=== PATIENT | female | born 1960 | race African-American/Black ===

== ENCOUNTER 2016-04-25 14:34 | Emergency (ER) | payer OTHER ==
[~2016-04-25] VITALS: Ht 157.5 cm; Wt 90.0 kg
[~2016-04-25 14:34] MED LIST: ALAVERT10 MG PO; ALBUTEROL0.63 MG/3 IH; ALDOMET250 MG PO; AMBIEN5 M1 PO; AMLODIPINE BESYL5 MG PO; APRESOLINE50 MG PO; ASPIRIN EC325 MG PO; ASPIRIN325 MG PO; AVENTYL,PAMELOR25 MG PO; BENTYL20 MG PO; CARAFATE1 GM PO; CATAPRES0.2 MG PO; CEFDINIR300 MG PO; CETIRIZINE HCL10 M2 PO; CINNABETIC1 CAPSUL1 PO; CLONIDINE HCL0.2 MG PO; CYMBALTA60 MG PO; DIABETA,MICRONAS5 MG PO; DICYCLOMINE HCL20 MG PO; DULCOLAX10 MG PR; ECOTRIN325 MG PO; EFFEXOR XR75 MG PO; EFFEXOR37.5 MG PO; EFFEXOR75 MG PO; Ecotrin PO; FERROUS SULFAT325 MG PO; FIORICET,ESG1 TABLET PO; FLEET ENEMA-AD118 ML PR; FLOVENT 11120 INHALA IH; FLUOXETINE HCL20 MG PO; GABAPENTIN300 MG PO; GEODON40 MG PO; GEODON60 MG PO; GLUCOPHAGE1000 MG PO; HUMALOG100 UNIT/1 SC; HYDROCHLOROTHIA25 MG PO; IBUPROFEN800 MG PO; KLOR-CON 1010 ME1 PO; LABETALOL HCL200 MG PO; LANTUS (UNITS)1 UNIT IV; LANTUS 10100 UNITS/ SC; LANTUS 3 M100 UNITS1 SC; LEVAQUIN500 MG PO; LEVEMIR FL100 UNIT/1 SC; LEXAPRO10 MG PO; LIPITOR20 MG PO; LIPITOR40 MG PO; LISINOPRIL10 MG PO; LISINOPRIL20 MG PO; LISINOPRIL40 MG PO; LITE COAT ASPI325 M1 PO; LOTENSIN40 MG PO; MACROBID100 MG PO; METFORMIN HCL500 MG PO; METHYLDOPA250 MG PO; MILK OF MAGN PO; MIRALAX17 GM PO; MIRALAX255 GM PO; MOTRIN800 MG PO; MULTI VITAMIN1 EACH PO; MULTIPLE VITAM1 EACH PO; MULTIVITAMIN1 EAC2 PO; NEURONTIN300 MG PO; NITROGLYCERIN0.4 MG PO; NITROSTAT0.4 MG SL; NORMODYNE,TRAN200 MG PO; NORMODYNE200 MG PO; NORTRIPTYLINE H25 MG PO; NORVASC10 MG PO; NORVASC5 MG PO; NOVOLOG 10100 UNITS/ SC; NOVOLOG MI100 UNIT/2 SQ; NOVOLOG MI100 UNIT/3 SQ; NOVOLOG MI100 UNIT/4 SC; NOVOLOG MI100 UNIT/M PO; NOVOLOG MI100 UNIT/M SC; NOVOLOG PE100 UNITS/ SC; ONE DAILY TABL1 EAC1 PO; PHARMACIST FAV1 EACH PO; PLAVIX75 MG PO; POLYETHYLENE GL17 GM PO; PROAIR HFA8.5 GM IH; PROZAC20 MG PO; RANITIDINE HCL300 MG PO; REGLAN10 MG PO; ROZEREM8 MG PO; SENNA S TABLET1 EACH PO; SENNA-TIME S T1 EACH PO; SENNA8.6 M1 PO; SENNA8.6 MG PO; SENOKOT,SENN1 TABLET PO; SIMVASTATIN80 M1 PO; ST JOSEPH ASPIR81 M1 PO; ST JOSEPH ASPIR81 M2 PO; TOPAMAX25 MG PO; TOPAMAX50 MG PO; TOPIRAMATE25 MG PO; TRAMADOL HCL50 MG PO; TYLENOL REGULA325 MG PO; VENLAFAXINE HCL75 M3 PO; XARELTO15 MG PO; XARELTO20 MG PO; XYZAL5 MG PO; Xanax PO; ZANTAC300 MG PO; ZESTRIL20 MG PO; ZESTRIL40 MG PO; ZIPRASIDONE HCL60 MG PO; ZYRTEC10 M1 PO; ZYRTEC10 M2 PO; ZYRTEC10 M3 PO; [UNRECOGNIZED DRUG - OTHER] PO
[2016-04-25 15:01] LABS: HEMATOCRIT 32.3 % (36.0-46.0); MCH 24.3 PG (29.0-34.0); MCV 78.4 FL (83-99); MEAN PLAT.VOLUME 10.8 uM^3 (9.5-12.4); PLATELET COUNT 281 K/uL (156-360); RBC DIS.WIDTH-SD 39.3 % (39-53); RED BLOOD COUNT 4.12 M/uL (3.80-5.20); WHITE BLOOD COUNT 5.5 K/uL (4.1-10.2)
[2016-04-25 15:04] LABS: CARBON DIOXIDE (BICARBONATE) 22.7 MEQ/L (20-31)
[2016-04-25 15:10] LABS: CHLORIDE 109 mEq/L (99-109); POTASSIUM 3.8 mEq/L (3.7-5.4); SODIUM 139 mEq/L (136-147)
[2016-04-25 15:13] LABS: ANION GAP 9 MEQ/L (2-14)
[2016-04-25 15:15] LABS: GFR ESTIMATE (CALCULATED) > 59 mL/min/
[2016-04-25 15:16] LABS: UREA NITROGEN (BUN) 13 mg/dL (9-23)
[2016-04-25 15:20] LABS: GLUCOSE 457 mg/dL (70-99)
[2016-04-25 16:29] LABS: POINT-OF-CARE METER ID UU14100415
[2016-04-25 18:08] VITALS: BP 127/91
[2016-04-28 08:04] LABS: POINT-OF-CARE METER ID UU13113800; POINT-OF-CARE USER ID PUTMLD10
== END 2016-04-25 18:08 | disposition home or self-care (01) ==
LOC: EME → EDBD 14:34 → EME 14:34
PROVIDERS: Physician Assistant
DX: E11.65 Type 2 diabetes mellitus with hyperglycemia (principal); S93.602A Unspecified sprain of left foot, initial encounter; X58.XXXA Exposure to other specified factors, initial encounter; I10 Essential (primary) hypertension; E78.5 Hyperlipidemia, unspecified; Z79.4 Long term (current) use of insulin; Z79.02 Long term (current) use of antithrombotics/antiplatelets; Z79.82 Long term (current) use of aspirin; Z91.14 Patient's other noncompliance with medication regimen; Z87.891 Personal history of nicotine dependence
CPT/HCPCS: 73630; 80048; 82010; 82803; 82948; 85027; 99281; 99284; J7030

== ENCOUNTER 2016-05-30 17:26 | Emergency (ER) | payer OTHER ==
[~2016-05-30] VITALS: Ht 154.9 cm; Wt 89.1 kg
[2016-05-30 18:26] LABS: HEMATOCRIT 33.9 % (36.0-46.0); MCH 24.1 PG (29.0-34.0); MCHC 31.3 G/DL (30.0-36.0); MCV 77.2 FL (83-99); MEAN PLAT.VOLUME 11.7 uM^3 (9.5-12.4); PLATELET COUNT 310 K/uL (156-360); RBC DIS.WIDTH-CV 13.8 % (11.8-14.6); RBC DIS.WIDTH-SD 38.5 % (39-53); RED BLOOD COUNT 4.39 M/uL (3.80-5.20); WHITE BLOOD COUNT 6.4 K/uL (4.1-10.2)
[2016-05-30 18:38] LABS: CHLORIDE 107 mEq/L (99-109); SODIUM 135 mEq/L (136-147)
[2016-05-30 18:41] LABS: ANION GAP 9 MEQ/L (2-14)
[2016-05-30 18:43] LABS: GFR ESTIMATE (CALCULATED) 55 mL/min/
[2016-05-30 18:44] LABS: UREA NITROGEN (BUN) 15 mg/dL (9-23)
[2016-05-30 18:47] LABS: GLUCOSE 592 mg/dL (70-99)
[2016-05-30 18:50] LABS: TROP-I INTERPRETATION NEGATIVE; TROPONIN-I < 0.01 ng/mL (0.0-0.30)
[2016-05-30 20:47] LABS: ADD MIUA? NO; BILIRUBIN NEGATIVE; BLOOD NEGATIVE; COLOR YELLOW ((YELLOW)); GLUCOSE (STRIP) >=500; KETONES NEGATIVE; LEUKOCYTES NEGATIVE; NITRITE NEGATIVE; PROTEIN (STRIP) 30; SPECIFIC GRAVITY 1.035 (1.000-1.030); UCUL ADDED? NO; UROBILINOGEN 0.2 MG/DL (0.2-1.0)
[2016-05-30 21:14] LABS: POINT-OF-CARE METER ID UU13113702
[2016-05-30 21:57] LABS: POINT-OF-CARE METER ID UU13113702; POINT-OF-CARE USER ID 608261302
[2016-05-30 22:10] VITALS: BP 166/90
== END 2016-05-30 22:22 | disposition home or self-care (01) ==
LOC: EME 17:26
PROVIDERS: Emergency Medicine; Nurse Practitioner Family
DX: E10.65 Type 1 diabetes mellitus with hyperglycemia (principal); R51 Headache; M79.602 Pain in left arm; M79.605 Pain in left leg; I10 Essential (primary) hypertension; E78.5 Hyperlipidemia, unspecified; Z86.73 Personal history of transient ischemic attack (TIA), and cerebral infarction without residual deficits; Z79.4 Long term (current) use of insulin; Z79.02 Long term (current) use of antithrombotics/antiplatelets; Z79.82 Long term (current) use of aspirin; Z87.891 Personal history of nicotine dependence
CPT/HCPCS: 70450; 71020; 80048; 81003; 82948; 84484; 85027; 93005; 99281; 99285; J1815; J1885; J7030

== ENCOUNTER 2016-10-14 12:43 | Emergency (ER) | payer OTHER ==
[~2016-10-14] VITALS: Ht 154.9 cm; Wt 92.9 kg
[2016-10-14 14:34] LABS: HEMATOCRIT 36.6 % (36.0-46.0); MCH 23.3 PG (29.0-34.0); MCHC 30.9 G/DL (30.0-36.0); MCV 75.6 FL (83-99); MEAN PLAT.VOLUME 10.9 uM^3 (9.5-12.4); PLATELET COUNT 333 K/uL (156-360); RBC DIS.WIDTH-CV 14.5 % (11.8-14.6); RBC DIS.WIDTH-SD 39.4 % (39-53); RED BLOOD COUNT 4.84 M/uL (3.80-5.20); WHITE BLOOD COUNT 6.5 K/uL (4.1-10.2)
[2016-10-14 14:43] LABS: CHLORIDE 108 mEq/L (99-109); POTASSIUM 3.9 mEq/L (3.7-5.4); SODIUM 141 mEq/L (136-147)
[2016-10-14 14:45] LABS: GLUCOSE 185 mg/dL (70-99)
[2016-10-14 14:47] LABS: ANION GAP 9 MEQ/L (2-14); TOTAL BILIRUBIN 0.6 mg/dL (0.0-1.0)
[2016-10-14 14:49] LABS: ALKALINE PHOSPHATASE 108 IU/L (3-129); GFR ESTIMATE (CALCULATED) > 59 mL/min/
[2016-10-14 14:50] LABS: UREA NITROGEN (BUN) 17 mg/dL (9-23)
[2016-10-14] MEDS ORDERED: MOTRIN800 MG PO (15:09)
[2016-10-14 16:23] VITALS: BP 178/86
== END 2016-10-14 16:23 | disposition home or self-care (01) ==
LOC: EME 12:43
PROVIDERS: Nurse Practitioner Family
DX: R51 Headache (principal); I10 Essential (primary) hypertension; R11.2 Nausea with vomiting, unspecified; E10.9 Type 1 diabetes mellitus without complications; Z79.4 Long term (current) use of insulin; E78.5 Hyperlipidemia, unspecified; F10.10 Alcohol abuse, uncomplicated; R62.50 Unspecified lack of expected normal physiological development in childhood; Z86.73 Personal history of transient ischemic attack (TIA), and cerebral infarction without residual deficits; Z87.891 Personal history of nicotine dependence
CPT/HCPCS: 80053; 85027; 99281; 99285; J1885; J2405; J3010

== ENCOUNTER 2017-01-26 19:18 | Emergency (ER) | payer OTHER ==
[~2017-01-26] VITALS: Ht 157.5 cm; Wt 94.7 kg
[2017-01-26 19:35] LABS: POINT-OF-CARE METER ID UU13113747
[2017-01-26 19:57] LABS: HEMATOCRIT 36.2 % (36.0-46.0); MCHC 30.9 G/DL (30.0-36.0); MCV 77.7 FL (83-99); MEAN PLAT.VOLUME 10.4 uM^3 (9.5-12.4); PLATELET COUNT 350 K/uL (156-360); RBC DIS.WIDTH-CV 14.4 % (11.8-14.6); RBC DIS.WIDTH-SD 40.3 % (39-53); RED BLOOD COUNT 4.66 M/uL (3.80-5.20); WHITE BLOOD COUNT 8.5 K/uL (4.1-10.2)
[2017-01-26 20:04] LABS: CHLORIDE 109 mEq/L (99-109); POTASSIUM 4.1 mEq/L (3.7-5.4); SODIUM 142 mEq/L (136-147)
[2017-01-26 20:06] LABS: GLUCOSE 127 mg/dL (70-99)
[2017-01-26 20:07] LABS: ANION GAP 8 MEQ/L (2-14)
[2017-01-26 20:08] LABS: TOTAL BILIRUBIN 0.4 mg/dL (0.0-1.0)
[2017-01-26 20:10] LABS: ALKALINE PHOSPHATASE 109 IU/L (3-129); GFR ESTIMATE (CALCULATED) > 59 mL/min/
[2017-01-26 20:11] LABS: UREA NITROGEN (BUN) 17 mg/dL (9-23)
[2017-01-26 22:21] LABS: ADD MIUA? YES; BILIRUBIN NEGATIVE; BLOOD NEGATIVE; COLOR YELLOW ((YELLOW)); GLUCOSE (STRIP) NEGATIVE; KETONES NEGATIVE; LEUKOCYTES MODERATE; NITRITE NEGATIVE; PROTEIN (STRIP) 30; SPECIFIC GRAVITY 1.023 (1.000-1.030)
[2017-01-26 22:31] LABS: POINT-OF-CARE METER ID UU13113747; POINT-OF-CARE USER ID 611181311
[2017-01-26 22:47] LABS: BACTERIA RARE /HPF; EPITHELIAL CELLS 1+ /HPF; MUCUS TRACE /LPF; UCUL ADDED? YES; WHITE BLOOD CELLS 20-30 /HPF (0-5)
[2017-01-26 23:15] VITALS: BP 115/95
== END 2017-01-26 23:15 | disposition home or self-care (01) ==
LOC: EME 19:18
PROVIDERS: Nurse Practitioner Family
DX: E10.649 Type 1 diabetes mellitus with hypoglycemia without coma (principal); Z79.4 Long term (current) use of insulin; E78.5 Hyperlipidemia, unspecified; I10 Essential (primary) hypertension; R62.50 Unspecified lack of expected normal physiological development in childhood; Z86.73 Personal history of transient ischemic attack (TIA), and cerebral infarction without residual deficits; Z87.891 Personal history of nicotine dependence; Z88.2 Allergy status to sulfonamides; Z88.6 Allergy status to analgesic agent
CPT/HCPCS: 71020; 80053; 81003; 82948; 85027; 87086; 93005; 99281; 99285

== ENCOUNTER 2017-05-04 11:18 | Emergency (ER) | payer OTHER ==
[~2017-05-04] VITALS: Ht 157.5 cm; Wt 93.0 kg
[2017-05-04 13:23] LABS: BASOPHIL (%) 0.5 % (0-1); EOSINOPHIL (%) 1.8 % (0-5); EOSINOPHIL COUNT 0.1 K/uL (0-0.3); HEMATOCRIT 37.5 % (36.0-46.0); HEMOGLOBIN 11.8 G/DL (11.9-15.5); IMMATURE GRANULOCYTE (%) 0.3 % (0.0-0.7); LYMPHOCYTE (%) 34.7 % (15-42); LYMPHOCYTE COUNT 2.2 K/uL (1.0-2.8); MCH 24.3 PG (29.0-34.0); MCHC 31.5 G/DL (30.0-36.0); MCV 77.2 FL (83-99); MONOCYTE COUNT 0.6 K/uL (0-0.8); NEUTROPHIL (%) 53.7 % (45-76); NEUTROPHIL COUNT 3.3 K/uL (1.8-6.4); PLATELET COUNT 252 K/uL (156-360); RBC DIS.WIDTH-CV 14.6 % (11.8-14.6); RBC DIS.WIDTH-SD 40.3 % (39-53); RED BLOOD COUNT 4.86 M/uL (3.80-5.20); WHITE BLOOD COUNT 6.2 K/uL (4.1-10.2)
[2017-05-04 13:31] LABS: CHLORIDE 109 mEq/L (99-109); POTASSIUM 4.9 mEq/L (3.7-5.4); SODIUM 140 mEq/L (136-147)
[2017-05-04 13:32] LABS: GLUCOSE 230 mg/dL (70-99)
[2017-05-04 13:36] LABS: CREATININE 0.9 mg/dL (0.6-1.3); GFR ESTIMATE (CALCULATED) > 59 mL/min/
[2017-05-04 13:37] LABS: UREA NITROGEN (BUN) 14 mg/dL (9-23)
[2017-05-04] MEDS ORDERED: PEN-VEE K,VEET500 MG PO (15:16)
[2017-05-04 15:37] VITALS: BP 178/92
== END 2017-05-04 15:59 | disposition home or self-care (01) ==
LOC: EME 11:18
PROVIDERS: Emergency Medicine
DX: K04.7 Periapical abscess without sinus (principal); K05.10 Chronic gingivitis, plaque induced; R13.10 Dysphagia, unspecified; E10.9 Type 1 diabetes mellitus without complications; Z79.4 Long term (current) use of insulin; E78.5 Hyperlipidemia, unspecified; I10 Essential (primary) hypertension; Z86.73 Personal history of transient ischemic attack (TIA), and cerebral infarction without residual deficits; Z88.2 Allergy status to sulfonamides; Z87.891 Personal history of nicotine dependence; Z88.6 Allergy status to analgesic agent
CPT/HCPCS: 70491; 80048; 82948; 85025; 99281; 99285; J7030

== ENCOUNTER 2017-05-25 12:11 | Inpatient (IN) | payer OTHER ==
[~2017-05-25] VITALS: Ht 157.5 cm; Wt 95.0 kg
[~2017-05-25 12:11] MED LIST changes: +PEN-VEE K,VEET500 MG PO; -ZYRTEC10 M2 PO
[2017-05-25 13:06] LABS: BASOPHIL (%) 0.3 % (0-1); EOSINOPHIL (%) 2.4 % (0-5); EOSINOPHIL COUNT 0.1 K/uL (0-0.3); HEMATOCRIT 34.6 % (36.0-46.0); HEMOGLOBIN 10.9 G/DL (11.9-15.5); IMMATURE GRANULOCYTE (%) 0.5 % (0.0-0.7); LYMPHOCYTE (%) 32.5 % (15-42); LYMPHOCYTE COUNT 1.9 K/uL (1.0-2.8); MCH 24.1 PG (29.0-34.0); MCHC 31.5 G/DL (30.0-36.0); MCV 76.5 FL (83-99); MONOCYTE (%) 10.4 % (3-12); MONOCYTE COUNT 0.6 K/uL (0-0.8); NEUTROPHIL (%) 53.9 % (45-76); NEUTROPHIL COUNT 3.2 K/uL (1.8-6.4); PLATELET COUNT 283 K/uL (156-360); RBC DIS.WIDTH-CV 14.5 % (11.8-14.6); RBC DIS.WIDTH-SD 39.6 % (39-53); RED BLOOD COUNT 4.52 M/uL (3.80-5.20); WHITE BLOOD COUNT 5.9 K/uL (4.1-10.2)
[2017-05-25 13:15] LABS: PTT 26.3 SEC (25-37)
[2017-05-25 13:18] LABS: CHLORIDE 104 mEq/L (99-109); POTASSIUM 4.2 mEq/L (3.7-5.4); SODIUM 137 mEq/L (136-147)
[2017-05-25 13:20] LABS: GLUCOSE 548 mg/dL (70-99)
[2017-05-25 13:23] LABS: CREATININE 1.1 mg/dL (0.6-1.3); GFR ESTIMATE (CALCULATED) > 59 mL/min/
[2017-05-25 13:24] LABS: UREA NITROGEN (BUN) 17 mg/dL (9-23)
[2017-05-25 13:32] LABS: TROP-I INTERPRETATION NEGATIVE; TROPONIN-I < 0.01 ng/mL (0.0-0.30)
[2017-05-25 19:49] LABS: HDL CHOLESTEROL 47 MG/DL (Desirable>=50); LDL CHOLESTEROL 116 mg/dL (Desirable<100); NON-HDL CHOLESTEROL 132 mg/dL (Desirable<160); TOTAL CHOLESTEROL 179 mg/dL (Desirable<200); TRIGLYCERIDES 79 MG/DL (Normal: <150)
[2017-05-25 20:21] VITALS: BP 178/74
[2017-05-25 23:31] VITALS: BP 180/84
[2017-05-26] VITALS (8 sets, daily range): BP systolic 121–177; BP diastolic 61–86
[2017-05-26 13:35] LABS: HEMOGLOBIN A1c (GLYCOHEMOGLOB) 11.8 % (Below 5.7)
[2017-05-27] VITALS (7 sets, daily range): BP systolic 130–167; BP diastolic 59–79
[2017-05-27 12:26] LABS: CHLORIDE 107 MEQ/L (99-109); CREATININE 1.1 MG/DL (0.6-1.3); GFR ESTIMATE (CALCULATED) > 59 mL/min/; GLUCOSE 355 mg/dL (70-99); SODIUM 134 MEQ/L (136-147); UREA NITROGEN (BUN) 16 mg/dL (9-23)
[2017-05-28 04:25] VITALS: BP 136/65
[2017-05-28 08:00] VITALS: BP 136/67
[2017-05-28 11:34] VITALS: BP 138/65
[2017-05-28 15:50] VITALS: BP 122/55
[2017-05-28 19:58] VITALS: BP 143/67
[2017-05-29] VITALS: BP 116/70
[2017-05-29 04:48] VITALS: BP 139/79
[2017-05-29 06:42] LABS: HEMOGLOBIN 10.5 G/DL (11.9-15.5); MCH 23.8 PG (29.0-34.0); MCHC 30.9 G/DL (30.0-36.0); MCV 77.1 FL (83-99); PLATELET COUNT 290 K/uL (156-360); RBC DIS.WIDTH-CV 14.7 % (11.8-14.6); RBC DIS.WIDTH-SD 41.1 % (39-53); RED BLOOD COUNT 4.41 M/uL (3.80-5.20); WHITE BLOOD COUNT 6.2 K/uL (4.1-10.2)
[2017-05-29 07:03] LABS: CHLORIDE 111 MEQ/L (99-109); CREATININE 0.9 MG/DL (0.6-1.3); GFR ESTIMATE (CALCULATED) > 59 mL/min/; SODIUM 140 MEQ/L (136-147); UREA NITROGEN (BUN) 17 mg/dL (9-23)
[2017-05-29 07:04] LABS: GLUCOSE 91 mg/dL (70-99)
[2017-05-29 08:19] VITALS: BP 144/67
[2017-05-29] MEDS ORDERED: NOVOLOG MI100 UNIT/3 SC (11:15)
[2017-05-29] MEDS ORDERED: INSULIN SYRING1 EA53 MC (11:16)
[2017-05-29] MEDS ORDERED: TEST STRIPS MC (11:16)
[2017-05-29] MEDS ORDERED: 1ST TIER UNILE1 EAC1 MC (11:16)
[2017-05-29 16:44] VITALS: BP 127/61
== END 2017-05-29 17:17 | disposition home health service (06) | DRG 65 ==
LOC: EME 12:11 → EDOF 18:09 → ENRESERV 18:16 → 5WEST 20:04 → 5SOUTH 05-26 10:51 → ENRESERV 05-26 10:57 → 5SOUTH 05-26 14:02 → ENPENDDIS 05-29 11:20 → 5SOUTH 05-29 17:17
PROVIDERS: Emergency Medicine; Hospitalist; Internal Medicine; Physician Assistant Medical
DX: I63.9 Cerebral infarction, unspecified (principal); I16.0 Hypertensive urgency; I67.2 Cerebral atherosclerosis; E11.65 Type 2 diabetes mellitus with hyperglycemia; I69.354 Hemiplegia and hemiparesis following cerebral infarction affecting left non-dominant side; I10 Essential (primary) hypertension; E78.5 Hyperlipidemia, unspecified; R13.10 Dysphagia, unspecified; D64.9 Anemia, unspecified; R29.810 Facial weakness; F32.9 Major depressive disorder, single episode, unspecified; E66.9 Obesity, unspecified; Z68.38 Body mass index [BMI] 38.0-38.9, adult; K21.9 Gastro-esophageal reflux disease without esophagitis; Z90.710 Acquired absence of both cervix and uterus; Z91.19 Patient's noncompliance with other medical treatment and regimen; Z82.49 Family history of ischemic heart disease and other diseases of the circulatory system; Z82.3 Family history of stroke; Z79.899 Other long term (current) drug therapy; Z79.82 Long term (current) use of aspirin; Z79.4 Long term (current) use of insulin
CPT/HCPCS: 70450; 70496; 70498; 70551; 71045; 80048; 80061; 82948; 83036; 84484; 85025; 85027; 85610; 85730; 93005; 93306; 93880; 99281; 99285; G0378; J0360; J1644; J1815; J2060; J7030

== ENCOUNTER 2017-06-13 18:52 | Emergency (ER) | payer OTHER ==
[~2017-06-13] VITALS: Ht 157.5 cm; Wt 92.1 kg
[~2017-06-13 18:52] MED LIST changes: +1ST TIER UNILE1 EAC1 MC; +INSULIN SYRING1 EA53 MC; +NOVOLOG MI100 UNIT/3 SC; +TEST STRIPS MC
[2017-06-13 20:03] LABS: HEMATOCRIT 36.9 % (36.0-46.0); HEMOGLOBIN 11.6 G/DL (11.9-15.5); MCHC 31.4 G/DL (30.0-36.0); MCV 76.4 FL (83-99); PLATELET COUNT 277 K/uL (156-360); RBC DIS.WIDTH-CV 14.6 % (11.8-14.6); RBC DIS.WIDTH-SD 39.8 % (39-53); RED BLOOD COUNT 4.83 M/uL (3.80-5.20); WHITE BLOOD COUNT 9.2 K/uL (4.1-10.2)
[2017-06-13 20:11] LABS: CHLORIDE 107 mEq/L (99-109); POTASSIUM 3.8 mEq/L (3.7-5.4); SODIUM 139 mEq/L (136-147)
[2017-06-13 20:13] LABS: GLUCOSE 65 mg/dL (70-99); TOTAL PROTEIN 7.9 g/dL (6.4-8.3)
[2017-06-13 20:15] LABS: TOTAL BILIRUBIN 0.5 mg/dL (0.0-1.0)
[2017-06-13 20:17] LABS: ALKALINE PHOSPHATASE 111 IU/L (3-129); CREATININE 0.9 mg/dL (0.6-1.3); GFR ESTIMATE (CALCULATED) > 59 mL/min/
[2017-06-13 20:18] LABS: UREA NITROGEN (BUN) 26 mg/dL (9-23)
[2017-06-13 20:19] LABS: AST (GOT) 21 IU/L (2-34)
[2017-06-13 20:20] LABS: ALT (GPT) 25 IU/L (3-49)
[2017-06-13 21:55] LABS: APPEARANCE CLEAR ((CLEAR)); BILIRUBIN NEGATIVE; BLOOD SMALL; COLOR YELLOW ((YELLOW)); GLUCOSE (STRIP) NEGATIVE; KETONES NEGATIVE; LEUKOCYTES NEGATIVE; NITRITE NEGATIVE; PROTEIN (STRIP) 100; SPECIFIC GRAVITY 1.016 (1.000-1.030); UROBILINOGEN 0.2 MG/DL (0.2-1.0)
[2017-06-13 21:59] LABS: BACTERIA NONE SEEN /HPF; EPITHELIAL CELLS RARE /HPF; HYALINE CASTS 0-5 /LPF; MUCUS TRACE /LPF; RED BLOOD CELLS 0-5 /HPF (0-5); UCUL ADDED? NO; WHITE BLOOD CELLS 0-5 /HPF (0-5)
[2017-06-13 23:16] VITALS: BP 96/77
== END 2017-06-13 23:28 | disposition home or self-care (01) ==
LOC: EME 18:52
PROVIDERS: Emergency Medicine
DX: E10.65 Type 1 diabetes mellitus with hyperglycemia (principal); Z79.4 Long term (current) use of insulin; R94.31 Abnormal electrocardiogram [ECG] [EKG]; I10 Essential (primary) hypertension; E78.5 Hyperlipidemia, unspecified; J45.909 Unspecified asthma, uncomplicated; F32.9 Major depressive disorder, single episode, unspecified; Z87.891 Personal history of nicotine dependence; Z79.82 Long term (current) use of aspirin; Z86.73 Personal history of transient ischemic attack (TIA), and cerebral infarction without residual deficits; Z90.49 Acquired absence of other specified parts of digestive tract; Z88.2 Allergy status to sulfonamides; Z88.5 Allergy status to narcotic agent; Z88.6 Allergy status to analgesic agent
CPT/HCPCS: 71045; 80053; 81003; 82948; 85027; 93005; 99281; 99285

== ENCOUNTER 2017-06-25 17:28 | Emergency (ER) | payer OTHER ==
[~2017-06-25] VITALS: Ht 157.5 cm; Wt 90.4 kg
[2017-06-25 18:00] LABS: HEMATOCRIT 37.2 % (36.0-46.0); HEMOGLOBIN 11.8 G/DL (11.9-15.5); MCH 24.4 PG (29.0-34.0); MCHC 31.7 G/DL (30.0-36.0); PLATELET COUNT 320 K/uL (156-360); RBC DIS.WIDTH-CV 14.7 % (11.8-14.6); RBC DIS.WIDTH-SD 40.6 % (39-53); RED BLOOD COUNT 4.83 M/uL (3.80-5.20); WHITE BLOOD COUNT 7.2 K/uL (4.1-10.2)
[2017-06-25 18:09] LABS: ALBUMIN 4.2 g/dL (3.2-4.8)
[2017-06-25 18:10] LABS: CHLORIDE 108 mEq/L (99-109); SODIUM 143 mEq/L (136-147)
[2017-06-25 18:12] LABS: GLUCOSE 342 mg/dL (70-99); TOTAL PROTEIN 8.2 g/dL (6.4-8.3)
[2017-06-25 18:14] LABS: TOTAL BILIRUBIN 0.6 mg/dL (0.0-1.0)
[2017-06-25 18:15] LABS: ALKALINE PHOSPHATASE 136 IU/L (3-129)
[2017-06-25 18:16] LABS: CREATININE 1.2 mg/dL (0.6-1.3); GFR ESTIMATE (CALCULATED) > 59 mL/min/
[2017-06-25 18:17] LABS: AST (GOT) 14 IU/L (2-34); UREA NITROGEN (BUN) 17 mg/dL (9-23)
[2017-06-25 18:19] LABS: ALT (GPT) 25 IU/L (3-49)
[2017-06-25 21:08] LABS: APPEARANCE SL.HAZY ((CLEAR)); BILIRUBIN NEGATIVE; BLOOD NEGATIVE; COLOR YELLOW ((YELLOW)); GLUCOSE (STRIP) >=500; KETONES NEGATIVE; LEUKOCYTES NEGATIVE; NITRITE NEGATIVE; PROTEIN (STRIP) 30; SPECIFIC GRAVITY 1.035 (1.000-1.030); UROBILINOGEN 0.2 MG/DL (0.2-1.0)
[2017-06-25 21:20] LABS: BACTERIA NONE SEEN /HPF; EPITHELIAL CELLS 1+ /HPF; HYALINE CASTS 0-5 /LPF; MUCUS TRACE /LPF; RED BLOOD CELLS 0-5 /HPF (0-5); UCUL ADDED? NO; WHITE BLOOD CELLS 0-5 /HPF (0-5)
[2017-06-25 23:22] VITALS: BP 129/89
== END 2017-06-25 23:24 | disposition home or self-care (01) ==
LOC: EME 17:28
DX: E10.65 Type 1 diabetes mellitus with hyperglycemia (principal); Z79.4 Long term (current) use of insulin; E78.5 Hyperlipidemia, unspecified; J45.909 Unspecified asthma, uncomplicated; I10 Essential (primary) hypertension; F32.9 Major depressive disorder, single episode, unspecified; R62.50 Unspecified lack of expected normal physiological development in childhood; Z86.73 Personal history of transient ischemic attack (TIA), and cerebral infarction without residual deficits; Z88.2 Allergy status to sulfonamides; Z87.891 Personal history of nicotine dependence; Z88.6 Allergy status to analgesic agent
CPT/HCPCS: 80053; 81003; 82948; 85027; J7030

== ENCOUNTER 2017-07-09 16:03 | Emergency (ER) | payer OTHER ==
[~2017-07-09] VITALS: Ht 157.5 cm; Wt 92.5 kg
[2017-07-09 16:59] LABS: HEMATOCRIT 33.1 % (36.0-46.0); HEMOGLOBIN 10.5 G/DL (11.9-15.5); MCH 24.5 PG (29.0-34.0); MCHC 31.7 G/DL (30.0-36.0); MCV 77.2 FL (83-99); PLATELET COUNT 284 K/uL (156-360); RBC DIS.WIDTH-CV 14.7 % (11.8-14.6); RBC DIS.WIDTH-SD 40.4 % (39-53); RED BLOOD COUNT 4.29 M/uL (3.80-5.20); WHITE BLOOD COUNT 5.8 K/uL (4.1-10.2)
[2017-07-09 17:07] LABS: CHLORIDE 101 mEq/L (99-109); POTASSIUM 3.9 mEq/L (3.7-5.4); SODIUM 134 mEq/L (136-147)
[2017-07-09 17:13] LABS: CREATININE 1.2 mg/dL (0.6-1.3); GFR ESTIMATE (CALCULATED) > 59 mL/min/; UREA NITROGEN (BUN) 23 mg/dL (9-23)
[2017-07-09 17:15] LABS: GLUCOSE 484 mg/dL (70-99)
[2017-07-09] MEDS ORDERED: NOVOLOG 10100 UNITS/ SC (17:22)
[2017-07-09] MEDS ORDERED: NOVOLOG MI100 UNIT/3 SC (17:24)
[2017-07-09 20:15] VITALS: BP 175/89
== END 2017-07-09 20:25 | disposition home or self-care (01) ==
LOC: EME 16:03
PROVIDERS: Nurse Practitioner Family
DX: E10.65 Type 1 diabetes mellitus with hyperglycemia (principal); Z76.0 Encounter for issue of repeat prescription; Z79.4 Long term (current) use of insulin; E78.5 Hyperlipidemia, unspecified; J45.909 Unspecified asthma, uncomplicated; I10 Essential (primary) hypertension; F32.9 Major depressive disorder, single episode, unspecified; R62.50 Unspecified lack of expected normal physiological development in childhood; Z86.73 Personal history of transient ischemic attack (TIA), and cerebral infarction without residual deficits; Z87.891 Personal history of nicotine dependence; Z88.2 Allergy status to sulfonamides; Z88.6 Allergy status to analgesic agent
CPT/HCPCS: 80048; 82010; 82803; 82948; 85027; 99281; 99285; J7030

== ENCOUNTER 2017-08-23 10:46 | Inpatient (IN) | payer OTHER ==
[~2017-08-23] VITALS: Ht 157.5 cm; Wt 93.7 kg
[2017-08-23 11:21] LABS: BASOPHIL (%) 0.2 % (0-1); EOSINOPHIL (%) 0.7 % (0-5); EOSINOPHIL COUNT 0.1 K/uL (0-0.3); HEMATOCRIT 34.5 % (36.0-46.0); HEMOGLOBIN 10.8 G/DL (11.9-15.5); IMMATURE GRANULOCYTE (%) 0.3 % (0.0-0.7); LYMPHOCYTE (%) 19.7 % (15-42); LYMPHOCYTE COUNT 1.9 K/uL (1.0-2.8); MCH 24.5 PG (29.0-34.0); MCHC 31.3 G/DL (30.0-36.0); MCV 78.4 FL (83-99); MONOCYTE (%) 7.7 % (3-12); MONOCYTE COUNT 0.7 K/uL (0-0.8); NEUTROPHIL (%) 71.4 % (45-76); NEUTROPHIL COUNT 6.7 K/uL (1.8-6.4); PLATELET COUNT 268 K/uL (156-360); RBC DIS.WIDTH-CV 14.9 % (11.8-14.6); RBC DIS.WIDTH-SD 42.6 % (39-53); WHITE BLOOD COUNT 9.4 K/uL (4.1-10.2)
[2017-08-23 11:27] LABS: INTER. NORMALIZED RATIO 1.1
[2017-08-23 11:29] LABS: PTT 27.6 SEC (25-37)
[2017-08-23 11:31] LABS: AMYLASE 39 IU/L (1-118); CHLORIDE 108 mEq/L (99-109); SODIUM 139 mEq/L (136-147)
[2017-08-23 11:33] LABS: GLUCOSE 220 mg/dL (70-99)
[2017-08-23 11:36] LABS: SERUM ETHYL ALCOHOL < 10 mg/dL
[2017-08-23 11:37] LABS: CREATININE 1.4 mg/dL (0.6-1.3); GFR ESTIMATE (CALCULATED) 50 mL/min/
[2017-08-23 11:38] LABS: UREA NITROGEN (BUN) 27 mg/dL (9-23)
[2017-08-23 11:40] LABS: LIPASE 15 U/L (1.0-51.0)
[2017-08-23 11:44] LABS: TROP-I INTERPRETATION NEGATIVE; TROPONIN-I < 0.01 ng/mL (0.0-0.30)
[2017-08-23 15:19] LABS: HDL CHOLESTEROL 36 MG/DL (Desirable>=50); LDL CHOLESTEROL 89 mg/dL (Desirable<100); NON-HDL CHOLESTEROL 109 mg/dL (Desirable<160); TOTAL CHOLESTEROL 145 mg/dL (Desirable<200); TRIGLYCERIDES 98 MG/DL (Normal: <150)
[2017-08-23 15:33] VITALS: BP 141/76
[2017-08-23] MEDS ORDERED: LISINOPRIL40 MG PO (16:50)
[2017-08-23] MEDS ORDERED: NOVOLOG MI100 UNIT/3 SC ×2 (16:50)
[2017-08-23] MEDS ORDERED: PANTOPRAZOLE SO40 MG PO (16:50)
[2017-08-23] MEDS ORDERED: FLONASE16 G1 BOTH NARES (16:51)
[2017-08-23] MEDS ORDERED: AZELASTINE137 MCG/0. BOTH NARES (16:51)
[2017-08-23] MEDS ORDERED: CELECOXIB200 MG PO (16:52)
[2017-08-23 19:30] VITALS: BP 153/73
[2017-08-24] VITALS (7 sets, daily range): BP systolic 116–176; BP diastolic 57–94
[2017-08-24 06:32] LABS: HEMATOCRIT 31.5 % (36.0-46.0); HEMOGLOBIN 9.5 G/DL (11.9-15.5); MCH 23.6 PG (29.0-34.0); MCHC 30.2 G/DL (30.0-36.0); MCV 78.4 FL (83-99); PLATELET COUNT 237 K/uL (156-360); RBC DIS.WIDTH-CV 14.9 % (11.8-14.6); RBC DIS.WIDTH-SD 42.6 % (39-53); RED BLOOD COUNT 4.02 M/uL (3.80-5.20); WHITE BLOOD COUNT 6.2 K/uL (4.1-10.2)
[2017-08-24 06:55] LABS: CHLORIDE 111 MEQ/L (99-109); GFR ESTIMATE (CALCULATED) > 59 mL/min/; GLUCOSE 129 mg/dL (70-99); POTASSIUM 4.2 MEQ/L (3.7-5.4); SODIUM 143 MEQ/L (136-147); UREA NITROGEN (BUN) 17 mg/dL (9-23)
[2017-08-24 06:56] LABS: CREATININE 0.9 MG/DL (0.6-1.3)
[2017-08-24 09:25] LABS: HEMOGLOBIN A1c (GLYCOHEMOGLOB) 10.8 % (Below 5.7)
[2017-08-25] VITALS: BP 156/94
[2017-08-25 03:36] VITALS: BP 118/74
[2017-08-25 08:02] VITALS: BP 142/75
[2017-08-25] MEDS ORDERED: INSULIN SYRING1 EA53 MC (08:28)
[2017-08-25] MEDS ORDERED: TEST STRIPS MC (08:30)
[2017-08-25] MEDS ORDERED: 1ST TIER UNILE1 EAC1 MC (08:30)
[2017-08-25] MEDS ORDERED: LIDODERM 5% P1 PATCH TD (08:36)
[2017-08-25] MEDS ORDERED: GLIPIZIDE5 MG PO (10:14)
[2017-08-25 11:28] VITALS: BP 147/78
== END 2017-08-25 13:12 | disposition home health service (06) | DRG 65 ==
LOC: EME 10:46 → EDOF 12:41 → 5SOUTH 12:41 → ENRESERV 12:47 → 5SOUTH 14:58
PROVIDERS: Emergency Medicine; Internal Medicine
DX: I63.9 Cerebral infarction, unspecified (principal); E11.65 Type 2 diabetes mellitus with hyperglycemia; R47.81 Slurred speech; I69.354 Hemiplegia and hemiparesis following cerebral infarction affecting left non-dominant side; E78.5 Hyperlipidemia, unspecified; I10 Essential (primary) hypertension; F32.9 Major depressive disorder, single episode, unspecified; R29.705 NIHSS score 5; H53.47 Heteronymous bilateral field defects; J45.909 Unspecified asthma, uncomplicated; Z79.4 Long term (current) use of insulin; Z79.82 Long term (current) use of aspirin; Z82.3 Family history of stroke; Z82.49 Family history of ischemic heart disease and other diseases of the circulatory system; Z90.710 Acquired absence of both cervix and uterus; Z87.891 Personal history of nicotine dependence; Z79.899 Other long term (current) drug therapy
CPT/HCPCS: 70450; 70496; 70498; 70551; 71045; 80047; 80048; 80061; 81003; 82150; 82948; 83036; 83605; 83690; 84484; 85025; 85027; 85610; 85730; 86850; 86900; 86901; 92610 GN; 93005; 99281; 99285; G0480; J1644; J1815; J7030

== ENCOUNTER 2017-09-04 11:22 | Emergency (ER) | payer OTHER ==
[~2017-09-04] VITALS: Ht 157.5 cm; Wt 93.7 kg
[~2017-09-04 11:22] MED LIST changes: +AZELASTINE137 MCG/0. BOTH NARES; +CELECOXIB200 MG PO; +FLONASE16 G1 BOTH NARES; +GLIPIZIDE5 MG PO; +LIDODERM 5% P1 PATCH TD; +PANTOPRAZOLE SO40 MG PO
[2017-09-04 12:04] LABS: HEMATOCRIT 33.6 % (36.0-46.0); HEMOGLOBIN 10.6 G/DL (11.9-15.5); MCH 24.6 PG (29.0-34.0); MCHC 31.5 G/DL (30.0-36.0); PLATELET COUNT 283 K/uL (156-360); RBC DIS.WIDTH-CV 14.8 % (11.8-14.6); RBC DIS.WIDTH-SD 42.2 % (39-53); RED BLOOD COUNT 4.31 M/uL (3.80-5.20); WHITE BLOOD COUNT 6.1 K/uL (4.1-10.2)
[2017-09-04 12:12] LABS: CHLORIDE 112 mEq/L (99-109); POTASSIUM 4.1 mEq/L (3.7-5.4); SODIUM 145 mEq/L (136-147)
[2017-09-04 12:14] LABS: GLUCOSE 56 mg/dL (70-99)
[2017-09-04 12:18] LABS: CREATININE 1.3 mg/dL (0.6-1.3); GFR ESTIMATE (CALCULATED) 54 mL/min/
[2017-09-04 12:19] LABS: UREA NITROGEN (BUN) 17 mg/dL (9-23)
[2017-09-04 15:29] VITALS: BP 120/68
== END 2017-09-04 15:33 | disposition home or self-care (01) ==
LOC: EME 11:22
PROVIDERS: Emergency Medicine
DX: R51 Headache (principal); Z86.73 Personal history of transient ischemic attack (TIA), and cerebral infarction without residual deficits; E78.5 Hyperlipidemia, unspecified; I10 Essential (primary) hypertension; J45.909 Unspecified asthma, uncomplicated; E10.9 Type 1 diabetes mellitus without complications; Z79.4 Long term (current) use of insulin; R62.50 Unspecified lack of expected normal physiological development in childhood; Z88.2 Allergy status to sulfonamides; Z88.6 Allergy status to analgesic agent; Z87.891 Personal history of nicotine dependence
CPT/HCPCS: 70450; 80048; 85027; 99281; 99285; J0780

== ENCOUNTER 2017-09-23 09:48 | Emergency (ER) | payer OTHER ==
[~2017-09-23] VITALS: Ht 157.5 cm; Wt 92.5 kg
[2017-09-23 13:45] VITALS: BP 154/87
== END 2017-09-23 14:13 | disposition home or self-care (01) ==
LOC: EME 09:48
DX: M16.12 Unilateral primary osteoarthritis, left hip (principal); M79.652 Pain in left thigh; J45.909 Unspecified asthma, uncomplicated; E10.9 Type 1 diabetes mellitus without complications; Z79.4 Long term (current) use of insulin; I10 Essential (primary) hypertension; F32.9 Major depressive disorder, single episode, unspecified; E78.5 Hyperlipidemia, unspecified; R62.50 Unspecified lack of expected normal physiological development in childhood; Z88.2 Allergy status to sulfonamides; Z88.6 Allergy status to analgesic agent; Z87.891 Personal history of nicotine dependence
CPT/HCPCS: 73502; 73552; 99281; 99284

== ENCOUNTER 2017-10-03 12:54 | Emergency (ER) | payer OTHER ==
[~2017-10-03] VITALS: Ht 157.5 cm; Wt 95.1 kg
[2017-10-03 15:48] LABS: BASOPHIL (%) 0.4 % (0-1); EOSINOPHIL (%) 1.5 % (0-5); EOSINOPHIL COUNT 0.2 K/uL (0-0.3); HEMATOCRIT 32.9 % (36.0-46.0); HEMOGLOBIN 10.4 G/DL (11.9-15.5); IMMATURE GRANULOCYTE (%) 0.3 % (0.0-0.7); LYMPHOCYTE COUNT 1.8 K/uL (1.0-2.8); MCH 25.1 PG (29.0-34.0); MCHC 31.6 G/DL (30.0-36.0); MCV 79.3 FL (83-99); MONOCYTE (%) 7.3 % (3-12); MONOCYTE COUNT 0.7 K/uL (0-0.8); NEUTROPHIL (%) 72.5 % (45-76); NEUTROPHIL COUNT 7.3 K/uL (1.8-6.4); PLATELET COUNT 299 K/uL (156-360); RBC DIS.WIDTH-CV 14.3 % (11.8-14.6); RBC DIS.WIDTH-SD 41.1 % (39-53); RED BLOOD COUNT 4.15 M/uL (3.80-5.20); WHITE BLOOD COUNT 10.1 K/uL (4.1-10.2)
[2017-10-03 15:58] LABS: ALBUMIN 3.8 g/dL (3.2-4.8); CHLORIDE 110 mEq/L (99-109); POTASSIUM 4.2 mEq/L (3.7-5.4); SODIUM 140 mEq/L (136-147)
[2017-10-03 16:00] LABS: GLUCOSE 88 mg/dL (70-99)
[2017-10-03 16:02] LABS: TOTAL BILIRUBIN 0.3 mg/dL (0.0-1.0)
[2017-10-03 16:04] LABS: ALKALINE PHOSPHATASE 106 IU/L (3-129); CREATININE 1.1 mg/dL (0.6-1.3); GFR ESTIMATE (CALCULATED) > 59 mL/min/
[2017-10-03 16:05] LABS: UREA NITROGEN (BUN) 26 mg/dL (9-23)
[2017-10-03 16:06] LABS: AST (GOT) 14 IU/L (2-34)
[2017-10-03 16:07] LABS: ALT (GPT) 22 IU/L (3-49)
[2017-10-03 16:12] LABS: TROP-I INTERPRETATION NEGATIVE; TROPONIN-I < 0.01 ng/mL (0.0-0.30)
[2017-10-03 17:57] LABS: APPEARANCE CLEAR ((CLEAR)); BILIRUBIN NEGATIVE; BLOOD NEGATIVE; COLOR YELLOW ((YELLOW)); GLUCOSE (STRIP) >=500; KETONES 5; LEUKOCYTES TRACE; NITRITE NEGATIVE; PROTEIN (STRIP) 30; SPECIFIC GRAVITY 1.021 (1.000-1.030)
[2017-10-03 18:07] LABS: BACTERIA NONE SEEN /HPF; EPITHELIAL CELLS 1+ /HPF; HYALINE CASTS 20-30 /LPF; MUCUS 1+ /LPF; RED BLOOD CELLS 0-5 /HPF (0-5)
[2017-10-03 19:04] VITALS: BP 168/95
== END 2017-10-03 19:06 | disposition home or self-care (01) ==
LOC: EME 12:54
PROVIDERS: Emergency Medicine
DX: E10.649 Type 1 diabetes mellitus with hypoglycemia without coma (principal); Z79.4 Long term (current) use of insulin; I10 Essential (primary) hypertension; E78.5 Hyperlipidemia, unspecified; J45.909 Unspecified asthma, uncomplicated; F32.9 Major depressive disorder, single episode, unspecified; Z86.73 Personal history of transient ischemic attack (TIA), and cerebral infarction without residual deficits; Z87.891 Personal history of nicotine dependence; Z88.2 Allergy status to sulfonamides; Z88.5 Allergy status to narcotic agent; Z88.6 Allergy status to analgesic agent
CPT/HCPCS: 80053; 81003; 82948; 84484; 85025; 93005; 99281; 99284

== ENCOUNTER 2017-10-10 16:52 | Observation (INO) | payer OTHER ==
[~2017-10-10] VITALS: Ht 157.5 cm; Wt 96.1 kg
[2017-10-10 18:04] LABS: BASOPHIL (%) 0.4 % (0-1); EOSINOPHIL (%) 1.9 % (0-5); EOSINOPHIL COUNT 0.2 K/uL (0-0.3); HEMATOCRIT 33.5 % (36.0-46.0); HEMOGLOBIN 10.4 G/DL (11.9-15.5); IMMATURE GRANULOCYTE (%) 0.4 % (0.0-0.7); LYMPHOCYTE (%) 26.8 % (15-42); LYMPHOCYTE COUNT 2.1 K/uL (1.0-2.8); MCH 24.7 PG (29.0-34.0); MCV 79.6 FL (83-99); MONOCYTE (%) 7.2 % (3-12); MONOCYTE COUNT 0.6 K/uL (0-0.8); NEUTROPHIL (%) 63.3 % (45-76); NEUTROPHIL COUNT 4.9 K/uL (1.8-6.4); PLATELET COUNT 298 K/uL (156-360); RED BLOOD COUNT 4.21 M/uL (3.80-5.20); WHITE BLOOD COUNT 7.8 K/uL (4.1-10.2)
[2017-10-10 18:14] LABS: CHLORIDE 107 mEq/L (99-109); POTASSIUM 3.9 mEq/L (3.7-5.4); SODIUM 140 mEq/L (136-147)
[2017-10-10 18:16] LABS: GLUCOSE 123 mg/dL (70-99)
[2017-10-10 18:20] LABS: CREATININE 1.2 mg/dL (0.6-1.3); GFR ESTIMATE (CALCULATED) > 59 mL/min/
[2017-10-10 18:21] LABS: UREA NITROGEN (BUN) 24 mg/dL (9-23)
[2017-10-10 18:26] LABS: TROP-I INTERPRETATION NEGATIVE; TROPONIN-I < 0.01 ng/mL (0.0-0.30)
[2017-10-10 18:54] LABS: APPEARANCE CLEAR ((CLEAR)); BILIRUBIN NEGATIVE; BLOOD NEGATIVE; COLOR YELLOW ((YELLOW)); GLUCOSE (STRIP) >=500; KETONES 5; LEUKOCYTES NEGATIVE; NITRITE NEGATIVE; PROTEIN (STRIP) 30; SPECIFIC GRAVITY 1.026 (1.000-1.030); UCUL ADDED? NO
[2017-10-10 22:06] VITALS: BP 145/65
[2017-10-11 01:13] LABS: TROP-I INTERPRETATION NEGATIVE; TROPONIN-I < 0.01 ng/mL (0.0-0.30)
[2017-10-11 03:56] VITALS: BP 122/62
[2017-10-11 05:57] LABS: TROP-I INTERPRETATION NEGATIVE; TROPONIN-I < 0.01 ng/mL (0.0-0.30)
[2017-10-11 07:13] LABS: CHLORIDE 109 MEQ/L (99-109); POTASSIUM 3.6 MEQ/L (3.7-5.4); SODIUM 142 MEQ/L (136-147)
[2017-10-11 07:19] LABS: GFR ESTIMATE (CALCULATED) > 59 mL/min/; GLUCOSE 100 mg/dL (70-99); UREA NITROGEN (BUN) 21 mg/dL (9-23)
[2017-10-11 08:53] VITALS: BP 137/84
[2017-10-11 12:20] VITALS: BP 139/75
[2017-10-11 12:34] LABS: HEMOGLOBIN A1c (GLYCOHEMOGLOB) 9.4 % (Below 5.7)
== END 2017-10-11 18:15 | disposition home or self-care (01) ==
LOC: EME 16:52 → EDOF 20:26 → ENRESERV 20:35 → 4SOUTH 22:00
PROVIDERS: Emergency Medicine; Hospitalist; Physician Assistant
DX: E10.649 Type 1 diabetes mellitus with hypoglycemia without coma (principal); F79 Unspecified intellectual disabilities; I10 Essential (primary) hypertension; E78.00 Pure hypercholesterolemia, unspecified; I25.10 Atherosclerotic heart disease of native coronary artery without angina pectoris; Z91.14 Patient's other noncompliance with medication regimen; Z91.19 Patient's noncompliance with other medical treatment and regimen; Z86.73 Personal history of transient ischemic attack (TIA), and cerebral infarction without residual deficits; Z90.710 Acquired absence of both cervix and uterus; Z88.2 Allergy status to sulfonamides; Z88.5 Allergy status to narcotic agent; Z88.6 Allergy status to analgesic agent; Z79.82 Long term (current) use of aspirin
CPT/HCPCS: 71045; 74176; 80048; 81003; 82948; 83036; 83735; 84484; 85025; 99281; 99285; G0378; J1650; J3010